=== PATIENT | female | born 1935 | race Caucasian/White ===

== ENCOUNTER 2021-09-15 13:04 | Inpatient (IN) | payer MEDICARE, MEDICAID ==
[~2021-09-15] VITALS: Ht 160 cm; Wt 72.6 kg
[2021-09-15 13:28] LABS: HEMATOCRIT 35.3 % (31.2-41.9); MEAN CORPUSCULAR HEMOGLOBIN 31.5 uug (24.7-32.8); MEAN CORPUSCULAR VOLUME 92.8 fL (75.5-95.3); PLATELET COUNT (AUTO) 251 K/uL (179-408)
[2021-09-15 13:37] LABS: CARBON DIOXIDE 21 mmol/L (21-32); CHLORIDE 97 mmol/L (98-107); CREATININE 7.2 mg/dL (0.6-1.3); GLUCOSE 134 mg/dL (74-106); POTASSIUM 4.5 mmol/L (3.5-5.1)
[2021-09-15 13:56] LABS: UREA NITROGEN, BLOOD 120 mg/dL (7-18)
--- NOTE | 2021-09-15 19:30 | NUR ---
Assumed care of patient from day shift MURALI Gallo. Patient awaiting dialysis.
--- NOTE | 2021-09-15 22:45 | NUR ---
CALLED [facility] FOR PANEL CALL, DR. MORELOS PAGED AND ON PHONE WITH DR. BABCOCK.
--- NOTE | 2021-09-15 23:04 | NUR ---
Patient asleep at this time. Appears comfortable. Still awaiting dialysis.
--- NOTE | 2021-09-16 01:18 | NUR ---
Dr Guadalupe made aware of pt BP-175/109, recheck and was 172/65 with no new order given.
--- NOTE | 2021-09-16 01:30 | NUR ---
Telephone call from foreman/pile driving and erection Marcelo and stated that pt. need to be inpatient to have dialysis done. Informed Manager Software Elizabeth and spoke to MURALI Robertson.
--- NOTE | 2021-09-16 01:42 | NUR ---
Spoke to supervisor shipping room Elizabeth to follow up regarding dialysis. Per Elizabeth pt has to be inpatient to have dialysis done. Informed Dr. Guadalupe and will admit patient. Epic panel call placed, spoke to Sarina, she stated she will get a hold of Dr. Jorgensen for admitting.
--- NOTE | 2021-09-16 03:50 | NUR ---
Pt. admitted to [facility] surgical unit Room 318, under care of Dr. Jorgensen. Belongs List completed.
[2021-09-16 03:58] VITALS: BP 188/64
--- NOTE | 2021-09-16 04:00 | NUR ---
Admitted patient in Med Surg floor under the care of Dr Jorgensen, Patient alert 2/3 unclear if she speak Kazakh cause does not response to verbal stimuli, Patient has dialysis shunt on left upper arm, no bleeding noted, dialysis staff will do dialysis tra, patient BP elevated, MD aware. Patient positive for Covid 19, on droplet caution, on isolation, no s/s of sob no chest pain, no s/s of pain, sat wnl in 96% room air. Patient has right and left groin redness, patient has wet diaper, cont to monitor.
--- NOTE | 2021-09-16 06:42 | NUR ---
Patient had dialysis today, took out 480cc per dialysis staff, tolerate well.
[2021-09-16] MEDS ORDERED: ALPR0.255 PO (10:13)
[2021-09-16] MEDS ORDERED: ASPI81TA31 PO (10:13)
[2021-09-16] MEDS ORDERED: CYAN-10 IM (10:13)
[2021-09-16] MEDS ORDERED: DONE5TAB7 PO (10:13)
[2021-09-16] MEDS ORDERED: CLON-418 PO (10:13)
[2021-09-16] MEDS ORDERED: ATOR20TA PO (10:13)
[2021-09-16] MEDS ORDERED: ACET-2154 PO (10:13)
[2021-09-16] MEDS ORDERED: DOCU-141 PO (10:18)
[2021-09-16] MEDS ORDERED: FOLI1TAB94 PO (10:18)
[2021-09-16] MEDS ORDERED: BISA10SU61 RC (10:18)
[2021-09-16] MEDS ORDERED: ERGO500040 PO (10:18)
[2021-09-16] MEDS ORDERED: INSU100V (10:18)
[2021-09-16] MEDS ORDERED: HYDR100T27 PO (10:18)
[2021-09-16] MEDS ORDERED: VIT1CAPS44 PO (10:27)
[2021-09-16] MEDS ORDERED: NUT.237L67 PO (10:27)
[2021-09-16] MEDS ORDERED: NIFE-35 PO (10:27)
[2021-09-16] MEDS ORDERED: SEVE800T8 PO (10:27)
[2021-09-16] MEDS ORDERED: ICOS1CAP PO (10:27)
[2021-09-16] MEDS ORDERED: FOLI1CAP7 PO (10:27)
[2021-09-16] MEDS ORDERED: SENN-302 PO (10:27)
[2021-09-16] MEDS ORDERED: ESCI20TA PO (10:27)
[2021-09-16] MEDS ORDERED: BISACODYL 10 MG SUPP.RECT RC PRN (10:30)
[2021-09-16] MEDS ORDERED: ALPRAZOLAM 0.25 MG TABLET PO PRN (10:30)
[2021-09-16] MEDS ORDERED: Medication Not On Formulary EA (Clonidine HCl (Clonidine HCl ER) 0.1 MG) PO SCH (10:30)
[2021-09-16] MEDS ORDERED: ACETAMINOPHEN 325 MG TABLET-SA PATIENTS-PAIN ONLY PO PRN (10:30)
[2021-09-16] MEDS ORDERED: ACETAMINOPHEN 325 MG TABLET PO PRN (10:45)
[2021-09-16] MEDS ORDERED: CLONIDINE HCL 0.1 MG TABLET PO PRN (10:45)
[2021-09-16] MEDS: SEVELAMER CARBONATE 800 MG TABLET PO SCH ×2 (11:55→17:26)
[2021-09-16 12:00] VITALS: BP 148/56
[2021-09-16 12:13] VITALS: BP 148/56
[2021-09-16] MEDS ORDERED: ERGOCALCIFEROL 50,000 UNIT CAPSULE PO SCH (15:00)
[2021-09-16] MEDS ORDERED: CYANOCOBALAMIN 1000 MCG/ML VIAL IM SCH (15:00)
[2021-09-16 15:34] VITALS: BP_SYST 121; BP_SYST 139; BP_DIAS 61; BP_DIAS 62
[2021-09-16] MEDS ORDERED: DEXTROSE 50% 50 ML DISP.SYRIN IV PRN (16:15)
[2021-09-16] MEDS: DOCUSATE SODIUM 100 MG CAPSULE PO SCH (17:25)
[2021-09-16] MEDS: BLOOD SUGAR DIAGNOSTIC 1 EACH STRIP VI SCH ×2 (17:25→20:52)
[2021-09-16] MEDS: hydrALAZINE HCL 50 MG TABLET PO SCH (17:26)
[2021-09-16] MEDS: NEPRO (VANILLA) 237 ML CAN PO SCH (17:26)
[2021-09-16] MEDS: INSULIN REGULAR, HUMAN 300 UNIT/3 ML VIAL SQ PRN (17:33)
--- NOTE | 2021-09-16 18:00 | NUR ---
Patient is alert to self, speaks little [place], able to answer simple questions. Is COVID positive, no SOB or coughing noted. S/P dialysis this new order clerk, no adverse reactions noted. AV shunt to left upper arm. Peripheral IV to right FA, patent and intact. Patient needs assistance with feeding, poor appetite noted. All needs attended, call light within reach.
[2021-09-16 20:00] VITALS: BP 146/61
[2021-09-16] MEDS: SENNOSIDES/DOCUSATE SODIUM TABLET PO SCH (20:41)
[2021-09-16] MEDS: ATORVASTATIN 20 MG TABLET PO SCH (20:41)
[2021-09-16] MEDS: ESCITALOPRAM OXALATE 10 MG TABLET PO SCH (20:41)
[2021-09-16] MEDS: NIFEdipine XL 30 MG TABSR PO SCH (20:41)
[2021-09-16] MEDS: DONEPEZIL 5 MG TABLET PO SCH (20:42)
[2021-09-16] MEDS: INSULIN REGULAR, HUMAN 300 UNITS/3 ML VIAL SQ PRN (20:58)
[2021-09-16] MEDS ORDERED: Medication Not On Formulary EA (Escitalopram Oxalate (Lexapro) 20 MG) PO SCH (21:00)
--- NOTE | 2021-09-17 04:12 | NUR ---
Awake alert and oriented x1-2 Calm and cooperative. VSS. Needs attended. COVID(+) All due meds given without difficulty. Incontinent of both bowel and bladder. Kept clean and dry. Patient on dialysis [id number] Left arm AV shunt intact. Oligur ic. Incontinent of bowel and bladder. BM noted this shift. Fall precautions maintained.Siderails up for safety. .
[2021-09-17 04:45] VITALS: BP 131/60
[2021-09-17] MEDS: BLOOD SUGAR DIAGNOSTIC 1 EACH STRIP VI SCH ×4 (06:31→20:50)
[2021-09-17 07:03] LABS: MEAN CORPUSCULAR HEMOGLOBIN 32.1 uug (24.7-32.8); MEAN CORPUSCULAR VOLUME 92.6 fL (75.5-95.3); PLATELET COUNT (AUTO) 242 K/uL (179-408)
[2021-09-17 07:23] LABS: CARBON DIOXIDE 28 mmol/L (21-32); CHLORIDE 97 mmol/L (98-107); CREATININE 6.4 mg/dL (0.6-1.3); GLUCOSE 121 mg/dL (74-106)
[2021-09-17 07:39] LABS: UREA NITROGEN, BLOOD 94 mg/dL (7-18)
[2021-09-17] MEDS: FOLIC ACID/VITAMIN B COMP W-C TABLET PO SCH (08:23)
[2021-09-17] MEDS: ASPIRIN 81 MG TAB.CHEW PO SCH (08:23)
[2021-09-17] MEDS: DOCUSATE SODIUM 100 MG CAPSULE PO SCH ×2 (08:23→16:29)
[2021-09-17] MEDS: OMEGA-3 FATTY ACIDS/FISH OIL CAPSULE PO SCH (08:23)
[2021-09-17] MEDS: SEVELAMER CARBONATE 800 MG TABLET PO SCH ×2 (08:23→11:39)
[2021-09-17] MEDS: FOLIC ACID 1 MG TABLET PO SCH (08:23)
[2021-09-17] MEDS: NEPRO (VANILLA) 237 ML CAN PO SCH ×2 (08:26→16:29)
[2021-09-17] MEDS: BETA CAROTENE/VIT C & E/MIN TABLET PO SCH (08:28)
[2021-09-17] MEDS: hydrALAZINE HCL 50 MG TABLET PO SCH ×2 (08:28→16:29)
[2021-09-17] MEDS ORDERED: Medication Not On Formulary EA (Vit C/E/Zn/Coppr/Lutein/Zeaxan (Preservision Areds 2 Sof PO SCH (09:00)
[2021-09-17] MEDS ORDERED: FOLIC ACID PO SCH (09:00)
[2021-09-17] MEDS ORDERED: Medication Not On Formulary EA (Icosapent Ethyl (Vascepa) 1 GM) PO SCH (09:00)
[2021-09-17] MEDS ORDERED: VITAMIN B COMP W C PO SCH (09:00)
[2021-09-17] MEDS ORDERED: [UNRECOGNIZED DRUG - OTHER] PO SCH (09:00)
[2021-09-17 10:06] LABS: HEPATITIS B SURFACE AG Negative (Negative)
[2021-09-17] MEDS: INSULIN REGULAR, HUMAN 300 UNIT/3 ML VIAL SQ PRN (11:42)
[2021-09-17 12:00] VITALS: BP 143/57
--- NOTE | 2021-09-17 15:13 | NUR ---
Patient positive for MRSA both nares. Will endorse information to PLAYGROUND WORKER.
[2021-09-17 16:00] VITALS: BP 118/58
[2021-09-17] MEDS: MUPIROCIN 2% OINT 22 GM TUBE NS SCH (16:29)
[2021-09-17] MEDS: SEVELAMER CARBONATE 800 MG POWD.PACK PO SCH (18:02)
--- NOTE | 2021-09-17 18:23 | NUR ---
Patient received care well throughout shift with no signs of distress or discomfort. Patient tolerating feedings, but when medication is crushed. Will endorse to PM nurse for the need of swallow evaluation. IV site patent and intact. Patient originally scheduled to have dialysis performed today but will have dialysis performed tomorrow. Bed left in lowest position with call light within reach. Comfort measures provided. Will endorse information to PM nurse.
[2021-09-17 20:00] VITALS: BP 147/59
[2021-09-17] MEDS: ESCITALOPRAM OXALATE 10 MG TABLET PO SCH (20:26)
[2021-09-17] MEDS: SENNOSIDES/DOCUSATE SODIUM TABLET PO SCH (20:26)
[2021-09-17] MEDS: ATORVASTATIN 20 MG TABLET PO SCH (20:26)
[2021-09-17] MEDS: DONEPEZIL 5 MG TABLET PO SCH (20:26)
[2021-09-17] MEDS: NIFEdipine XL 30 MG TABSR PO SCH (20:30)
[2021-09-17] MEDS: INSULIN REGULAR, HUMAN 300 UNITS/3 ML VIAL SQ PRN (20:52)
[2021-09-18 04:00] VITALS: BP 129/60
[2021-09-18] MEDS: BLOOD SUGAR DIAGNOSTIC 1 EACH STRIP VI SCH ×2 (06:30→11:30)
[2021-09-18 07:56] LABS: CARBON DIOXIDE 28 mmol/L (21-32); CHLORIDE 95 mmol/L (98-107); CREATININE 6.8 mg/dL (0.6-1.3); GLUCOSE 105 mg/dL (74-106); MAGNESIUM 2.8 mg/dL (1.8-2.4); PHOSPHOROUS 6.3 mg/dL (2.5-4.9); POTASSIUM 3.9 mmol/L (3.5-5.1)
[2021-09-18 08:04] LABS: UREA NITROGEN, BLOOD 102 mg/dL (7-18)
[2021-09-18 10:18] VITALS: BP 146/85
[2021-09-18] MEDS ORDERED: SEVE0.8P PO (10:30)
[2021-09-18] MEDS ORDERED: MUPI22OI2 NS (10:30)
[2021-09-18 10:59] VITALS: BP 146/85
[2021-09-18] MEDS: hydrALAZINE HCL 50 MG TABLET PO SCH (10:59)
[2021-09-18] MEDS: FOLIC ACID/VITAMIN B COMP W-C TABLET PO SCH (10:59)
[2021-09-18] MEDS: DOCUSATE SODIUM 100 MG CAPSULE PO SCH (11:00)
[2021-09-18] MEDS: OMEGA-3 FATTY ACIDS/FISH OIL CAPSULE PO SCH (11:00)
[2021-09-18] MEDS: BETA CAROTENE/VIT C & E/MIN TABLET PO SCH (11:00)
[2021-09-18] MEDS: ASPIRIN 81 MG TAB.CHEW PO SCH (11:00)
[2021-09-18] MEDS: FOLIC ACID 1 MG TABLET PO SCH (11:00)
[2021-09-18] MEDS: NEPRO (VANILLA) 237 ML CAN PO SCH (11:01)
[2021-09-18] MEDS: SEVELAMER CARBONATE 800 MG POWD.PACK PO SCH ×2 (11:03→12:29)
[2021-09-18] MEDS: MUPIROCIN 2% OINT 22 GM TUBE NS SCH (11:04)
--- NOTE | 2021-09-18 13:32 | NUR ---
[facility]
== END 2021-09-18 14:30 | DRG 177 ==
LOC: ER 13:04 → MEDSURG3 23:55
PROVIDERS: ADMIT Nurse Practitioner Acute Care; ATTEND Nurse Practitioner Acute Care
PROC: 5A1D70Z Performance of Urinary Filtration, Intermittent, Less than 6 Hours Per Day (ICD-10-PCS; principal; 2021-09-16)
DX: U07.1 COVID-19 (principal); G92.8 Other toxic encephalopathy; N18.6 End stage renal disease; J18.9 Pneumonia, unspecified organism; I12.0 Hypertensive chronic kidney disease with stage 5 chronic kidney disease or end stage renal disease; E11.22 Type 2 diabetes mellitus with diabetic chronic kidney disease; Z99.2 Dependence on renal dialysis; E78.5 Hyperlipidemia, unspecified; F03.90 Unspecified dementia, unspecified severity, without behavioral disturbance, psychotic disturbance, mood disturbance, and anxiety; F41.9 Anxiety disorder, unspecified; Z79.4 Long term (current) use of insulin
CPT/HCPCS: 36415; 71045; 83735; 84100; 85025; 86706; 87340; 90937; A4663; G0378; J1815; J3420; J7040

== ENCOUNTER 2022-01-28 13:52 | Inpatient (IN) | payer MEDICARE, OTHER ==
[~2022-01-28] VITALS: Ht 160 cm; Wt 49.4 kg
[~2022-01-28 13:52] MED LIST: ACET-2154 PO; ALPR0.255 PO; ASPI81TA31 PO; ATOR20TA PO; BISA10SU61 RC; CLON-418 PO; CYAN-10 IM; DOCU-141 PO; DONE5TAB7 PO; ERGO500040 PO; ESCI20TA PO; FOLI1CAP7 PO; FOLI1TAB94 PO; HYDR100T27 PO; ICOS1CAP PO; INSU100V SUBCUT; MUPI22OI2 NS; NIFE-35 PO; NUT.237L67 PO; SENN-302 PO; SEVE0.8P PO; SEVE800T8 PO; VIT1CAPS44 PO
[2022-01-28] MEDS ORDERED: VANCOMYCIN IV 1,000 MG in IV DEXTROSE 5% 250 ML IV ONE (14:00)
[2022-01-28] MEDS ORDERED: PIPERACILLIN SODIUM/TAZOBACTAM 3.375 G in IV DEXTROSE 5% 50 ML IV ONE (14:00)
[2022-01-28 14:19] LABS: ABG BASE EXCESS 1.3 mmol/L; ABG HCO3 24.5 mmol/L; ABG PCO2 34.3 mmHg (35.0-45.0); ABG PH 7.471 (7.350-7.450); ABG PO2 50.8 mmHg (75.0-100.0); ABG SITE RIGHT RADIAL; ABG TOTAL HEMOGLOBIN 13.3 G/dL (12.0-16.0); COHb 0.7 % (0.5-1.5); O2Hb 86.6 % (94.0-97.0)
[2022-01-28] MEDS ORDERED: PIPERACILLIN/TAZOBACTAM/D5W 50 ML IV ONE (14:24)
[2022-01-28] MEDS ORDERED: VANCOMYCIN IV 200 ML ONE (14:24)
[2022-01-28 14:50] LABS: HEMATOCRIT 39.4 % (31.2-41.9); MEAN CORPUSCULAR HEMOGLOBIN 29.3 uug (24.7-32.8); MEAN CORPUSCULAR VOLUME 93.3 fL (75.5-95.3); PLATELET COUNT (AUTO) 357 K/uL (179-408)
[2022-01-28 15:32] LABS: ALANINE AMINOTRANSFERASE 48 U/L (14-59); ALKALINE PHOSPHATASE 178 U/L (50-136); ASPARTATE AMINOTRANSFERASE 80 U/L (15-37); BILIRUBIN,DIRECT 0.2 mg/dL (0.0-0.2); BILIRUBIN,TOTAL 0.5 mg/dL (0.2-1.0); CARBON DIOXIDE 29 mmol/L (21-32); CHLORIDE 96 mmol/L (98-107); CREATININE 1.5 mg/dL (0.6-1.3); TOTAL PROTEIN, SERUM 6.9 g/dL (6.4-8.2); UREA NITROGEN, BLOOD 38 mg/dL (7-18)
[2022-01-28 15:45] LABS: GLUCOSE 389 mg/dL (74-106)
[2022-01-28] MEDS ORDERED: IV NORMAL SALINE 1000 ML BAG IV ONE ×2 (16:15→17:45)
[2022-01-28 16:33] LABS: ABG BASE EXCESS 5.9 mmol/L; ABG HCO3 29.2 mmol/L; ABG PCO2 37.5 mmHg (35.0-45.0); ABG PH 7.509 (7.350-7.450); ABG PO2 280.3 mmHg (75.0-100.0); ABG SITE RIGHT RADIAL; ABG TOTAL HEMOGLOBIN 12.8 G/dL (12.0-16.0); COHb 0.4 % (0.5-1.5); MetHb 0.3 % (0.0-1.5); O2Hb 99.1 % (94.0-97.0); VENT MODE HF -
--- NOTE | 2022-01-28 19:05 | NUR ---
Received report from Lisa CARRION.
--- NOTE | 2022-01-28 19:10 | NUR ---
Daughter at bedside.
[2022-01-28] MEDS ORDERED: DEXTROSE 50% 50 ML DISP.SYRIN IV PRN (20:15)
[2022-01-28] MEDS ORDERED: ALPRAZOLAM 0.25 MG TABLET PO PRN (20:15)
[2022-01-28] MEDS ORDERED: ALBUTEROL SULFATE 2.5 MG/3 ML NEBU NEB PRN (20:15)
[2022-01-28] MEDS ORDERED: MORPHINE SULFATE 2 MG/1 ML DISP.SYRIN IV PRN (20:15)
[2022-01-28] MEDS ORDERED: ONDANSETRON 4 MG/2 ML VIAL IV PRN (20:15)
[2022-01-28] MEDS ORDERED: POTASSIUM CHLORIDE 20 MEQ in IV 1/2NS 1000 ML 1,000 ML IV PRN (20:15)
[2022-01-28] MEDS ORDERED: ACETAMINOPHEN 325 MG TABLET PO PRN (20:15)
--- NOTE | 2022-01-28 20:28 | NUR ---
Called 3rd fl for tele bed. Waiting for call back.
[2022-01-28] MEDS: DONEPEZIL 5 MG TABLET PO SCH (21:00)
[2022-01-28] MEDS ORDERED: Medication Not On Formulary EA (Escitalopram Oxalate (Lexapro) 20 MG) PO SCH (21:00)
[2022-01-28] MEDS ORDERED: ATORVASTATIN 20 MG TABLET PO SCH (21:00)
--- NOTE | 2022-01-28 21:00 | NUR ---
It is unsafe for the patient to taken PO meds (Aricept 5 mg and Lipitor 20 mg). Patient may aspirate.
--- NOTE | 2022-01-28 22:55 | NUR ---
Savanah (daughter) left for the night and would like to be notified when patient is moved to TELE unit. Phone #: [phone]
--- NOTE | 2022-01-29 00:30 | NUR ---
Janelle cleaning perform. Diaper fully saturated with brown diarrhea. Bright red blood seen coming out of anus once cleaned was finished. Dr. Stevenson made aware.
[2022-01-29] MEDS: BLOOD SUGAR DIAGNOSTIC 1 EACH STRIP VI SCH ×5 (00:57→21:43)
[2022-01-29] MEDS ORDERED: INSULIN LISPRO 300 UNIT/3 ML VIAL SQ ONE (01:01)
[2022-01-29] MEDS ORDERED: INSULIN REGULAR, HUMAN 300 UNIT/3 ML VIAL ONE (01:04)
[2022-01-29] MEDS: INSULIN REGULAR, HUMAN 300 UNIT/3 ML VIAL SQ PRN ×3 (01:07→21:44)
[2022-01-29] MEDS ORDERED: PIPERACILLIN/TAZO 2.25 G in IV DEXTROSE 5% 50 ML IV SCH ×2 (02:00→08:00)
[2022-01-29] MEDS ORDERED: PIPERACILLIN/TAZOBACTAM/D5W 50 ML ONE (02:28)
--- NOTE | 2022-01-29 05:36 | NUR ---
MRSA swab taken to lab.
[2022-01-29] MEDS: PANTOPRAZOLE SODIUM 40 MG TABLET.DR PO SCH (07:00)
--- NOTE | 2022-01-29 07:10 | NUR ---
Report given to MURALI Gallo.
[2022-01-29 07:28] LABS: HEMATOCRIT 33.4 % (31.2-41.9); MEAN CORPUSCULAR HEMOGLOBIN 30.1 uug (24.7-32.8); MEAN CORPUSCULAR VOLUME 91.4 fL (75.5-95.3); PLATELET COUNT (AUTO) 262 K/uL (179-408)
[2022-01-29 07:55] LABS: ALANINE AMINOTRANSFERASE 27 U/L (14-59); ALKALINE PHOSPHATASE 141 U/L (50-136); ASPARTATE AMINOTRANSFERASE 28 U/L (15-37); BILIRUBIN,TOTAL 0.5 mg/dL (0.2-1.0); CARBON DIOXIDE 28 mmol/L (21-32); CHLORIDE 100 mmol/L (98-107); CHOLESTEROL 114 mg/dL (<200); GLUCOSE 149 mg/dL (74-106); HDL CHOLESTEROL 41 mg/dL (40-60); MAGNESIUM 1.9 mg/dL (1.8-2.4); PHOSPHOROUS 1.4 mg/dL (2.5-4.9); POTASSIUM 3.7 mmol/L (3.5-5.1); TOTAL PROTEIN, SERUM 5.7 g/dL (6.4-8.2); TRIGLYCERIDES 68 MG/DL (30-150); UREA NITROGEN, BLOOD 48 mg/dL (7-18)
[2022-01-29] MEDS ORDERED: IV NS 1000 ML 1,000 ML IV PRN (08:15)
[2022-01-29 09:00] LABS: THYROID STIMULATING HORMONE 0.627 mIU/mL (0.358-3.740)
[2022-01-29] MEDS: DOCUSATE SODIUM 100 MG CAPSULE PO SCH ×2 (09:00→21:46)
[2022-01-29] MEDS: ASPIRIN 81 MG TAB.CHEW PO SCH (09:00)
[2022-01-29] MEDS: ESCITALOPRAM OXALATE 10 MG TABLET PO SCH (09:00)
[2022-01-29] MEDS: PIPERACILLIN SODIUM/TAZOBACTAM 3.375 G in IV DEXTROSE 5% 100 ML IV SCH ×2 (09:56→21:48)
[2022-01-29] MEDS ORDERED: POTASSIUM PHOSPHATE MM 7.5 MMOL in IV NORMAL SALINE 97.5 ML IV ONE (10:00)
--- NOTE | 2022-01-29 10:49 | NUR ---
Per pharmacy, Potassium Phosphate and Zosyn ARE Y-site compatable.
[2022-01-29] MEDS ORDERED: CLON0.1T PO (13:34)
--- NOTE | 2022-01-29 14:00 | NUR ---
Changed and cleaned pt., repositioned.
--- NOTE | 2022-01-29 20:30 | NUR ---
Report given to Monica SHERMAN
--- NOTE | 2022-01-29 21:00 | NUR ---
PATIENT ASLEEP IN BED. ON TELE SR. VSS.
[2022-01-29 21:15] VITALS: BP 125/64
[2022-01-29] MEDS: DONEPEZIL 5 MG TABLET PO SCH (21:46)
--- NOTE | 2022-01-30 00:55 | NUR ---
IV SITE NOTED TO RIGHT FA LEAKING. UNABLE TO RESTART. NOTIFIED VESSEL WELDER. WILL ORDER MID-LINE PER MD. RN INSPECTION SUPERVISOR NOTIFIED.
--- NOTE | 2022-01-30 03:41 | NUR ---
PATIENT ON CONT HIGH FLOW @ 40%, TITRATE FIO2 TO 30%, SAT 98%, ABG IN AM BEFORE 0600, PT STABLE .Kahlil DHILLONP Addendum: 01/30/22 at 0342 by MARCUS REYNA RT Amended: Links added.
[2022-01-30 05:00] VITALS: BP 153/67
[2022-01-30 06:09] LABS: ABG BASE EXCESS -0.8 mmol/L; ABG HCO3 22.4 mmol/L; ABG PCO2 31.9 mmHg (35.0-45.0); ABG PH 7.464 (7.350-7.450); ABG PO2 111.4 mmHg (75.0-100.0); ABG SITE RIGHT RADIAL; ABG TOTAL HEMOGLOBIN 11.1 G/dL (12.0-16.0); COHb 0.1 % (0.5-1.5); MetHb 0.2 % (0.0-1.5); O2Hb 98.1 % (94.0-97.0); VENT MODE HF - Aquinox
[2022-01-30] MEDS: PANTOPRAZOLE SODIUM 40 MG TABLET.DR PO SCH (06:10)
[2022-01-30] MEDS: BLOOD SUGAR DIAGNOSTIC 1 EACH STRIP VI SCH ×4 (06:23→21:54)
[2022-01-30 06:36] LABS: HEMATOCRIT 33.7 % (31.2-41.9); MEAN CORPUSCULAR HEMOGLOBIN 29.5 uug (24.7-32.8); MEAN CORPUSCULAR VOLUME 92.1 fL (75.5-95.3); PLATELET COUNT (AUTO) 225 K/uL (179-408)
[2022-01-30 07:03] LABS: CARBON DIOXIDE 27 mmol/L (21-32); CHLORIDE 100 mmol/L (98-107); CREATININE 2.5 mg/dL (0.6-1.3); GLUCOSE 168 mg/dL (74-106); POTASSIUM 4.3 mmol/L (3.5-5.1); UREA NITROGEN, BLOOD 57 mg/dL (7-18)
[2022-01-30] MEDS: ESCITALOPRAM OXALATE 10 MG TABLET PO SCH ×3 (09:00→11:03)
[2022-01-30] MEDS: ASPIRIN 81 MG TAB.CHEW PO SCH ×3 (09:00→11:01)
[2022-01-30] MEDS: DOCUSATE SODIUM 100 MG CAPSULE PO SCH ×4 (09:00→16:48)
--- NOTE | 2022-01-30 09:13 | NUR ---
RECEIVED PT IN BED, SLEEPING. ATTEMPTED TO GIVE HER BREAKFAST AND MORNING MEDICATIONS BUT PATIENT IS NON-AROUSABLE, MOANING OCCASIONALLY BUT DOESN'T OPEN HER EYES. DOCTOR IS INFORMED. NPO FOR NOW PER MD.
[2022-01-30] MEDS: PIPERACILLIN SODIUM/TAZOBACTAM 3.375 G in IV DEXTROSE 5% 100 ML IV SCH ×2 (10:45→22:02)
[2022-01-30] MEDS: INSULIN REGULAR, HUMAN 300 UNIT/3 ML VIAL SQ PRN (11:50)
[2022-01-30 11:55] VITALS: BP 127/34
[2022-01-30 15:36] VITALS: BP 138/37
--- NOTE | 2022-01-30 16:48 | NUR ---
Patient unable to swallow pills due to her being sleepy and she is unable to follow commands when offered food or medications. Patient is currently NPO
[2022-01-30 20:00] VITALS: BP 117/58
[2022-01-30] MEDS: DONEPEZIL 5 MG TABLET PO SCH (21:00)
[2022-01-30] MEDS ORDERED: VANCOMYCIN IV 1,000 MG in IV DEXTROSE 5% 250 ML IV ONE (22:00)
[2022-01-30] MEDS: IV D5 1/2 NS 1000 ML 1,000 ML IV PRN (22:14)
[2022-01-30] MEDS ORDERED: VANCOMYCIN IV 200 ML ONE (23:01)
--- NOTE | 2022-01-30 23:24 | NUR ---
Yepez #16fr inserted safely via sterile procedure Drainage pus like 400 mls Specimen sent for UA/C&S.
[2022-01-30 23:50] LABS: *BILIRUBIN,URIN NEGATIVE (NEGATIVE); *BLOOD, URINE 3+ (NEGATIVE); *CLARITY,URINE TURBID (CLEAR); *COLOR,URINE YELLOW (YELLOW); *KETONES,URINE NEGATIVE (NEGATIVE); *UROBILINOGEN,URINE 0.2 E.U./dl (NORMAL); LEUKOCYTE ESTERASE ,URINE 3+ (NEGATIVE); NITRITE, URINE NEGATIVE (NEGATIVE); UGLUCOSE NEGATIVE (NEGATIVE)
[2022-01-31] VITALS: BP 139/59
[2022-01-31 04:00] VITALS: BP 141/51
[2022-01-31 06:10] LABS: BACTERIA,URINE MANY /HPF (NONE SEEN); SQUAMOUS EPITHELIAL CELL,UR FEW /HPF (NONE SEEN); URINE AMORPHOUS URATE MANY /HPF
[2022-01-31] MEDS ORDERED: VANCOMYCIN IV 500 MG in IV DEXTROSE 5% 100 ML IV PRN (06:45)
--- NOTE | 2022-01-31 07:22 | NUR ---
Stable repositioned Q2 AM care done . Pending Urine C&S result NPO
[2022-01-31] MEDS: BLOOD SUGAR DIAGNOSTIC 1 EACH STRIP VI SCH ×4 (07:40→21:00)
[2022-01-31 07:43] LABS: HEMATOCRIT 28.2 % (31.2-41.9); MEAN CORPUSCULAR HEMOGLOBIN 29.8 uug (24.7-32.8); MEAN CORPUSCULAR VOLUME 92.1 fL (75.5-95.3); PLATELET COUNT (AUTO) 208 K/uL (179-408)
[2022-01-31] MEDS: INSULIN REGULAR, HUMAN 300 UNIT/3 ML VIAL SQ PRN ×2 (07:49→22:42)
[2022-01-31 08:04] LABS: ALANINE AMINOTRANSFERASE 23 U/L (14-59); ALKALINE PHOSPHATASE 137 U/L (50-136); ASPARTATE AMINOTRANSFERASE 19 U/L (15-37); BILIRUBIN,TOTAL 0.5 mg/dL (0.2-1.0); CARBON DIOXIDE 25 mmol/L (21-32); CHLORIDE 101 mmol/L (98-107); CREATININE 3.1 mg/dL (0.6-1.3); GLUCOSE 187 mg/dL (74-106); MAGNESIUM 1.9 mg/dL (1.8-2.4); POTASSIUM 3.4 mmol/L (3.5-5.1); TOTAL PROTEIN, SERUM 4.9 g/dL (6.4-8.2); UREA NITROGEN, BLOOD 59 mg/dL (7-18)
[2022-01-31] MEDS: PIPERACILLIN/TAZO 2.25 G in IV DEXTROSE 5% 50 ML IV SCH ×3 (08:34→23:50)
[2022-01-31] MEDS: ESCITALOPRAM OXALATE 10 MG TABLET PO SCH (09:00)
[2022-01-31] MEDS: ASPIRIN 81 MG TAB.CHEW PO SCH (09:00)
[2022-01-31] MEDS: DOCUSATE SODIUM 100 MG CAPSULE PO SCH ×2 (09:00→16:51)
--- NOTE | 2022-01-31 09:00 | NUR ---
Received pt sleeping in bed, morning meds were not given since patient is NPO and unable to swallow food and meds.
[2022-01-31] MEDS: MUPIROCIN 2% OINT 22 GM TUBE NS SCH ×2 (09:57→20:56)
[2022-01-31 12:00] VITALS: BP 113/68
[2022-01-31] MEDS ORDERED: POTASSIUM CHLORIDE 50 ML IV SCH (14:00)
[2022-01-31 16:00] VITALS: BP 124/62
[2022-01-31 20:00] VITALS: BP 101/52
[2022-01-31] MEDS: DONEPEZIL 5 MG TABLET PO SCH (20:53)
--- NOTE | 2022-01-31 20:57 | NUR ---
Ointment to g-tube site not administer, no g-tube site.
--- NOTE | 2022-01-31 23:45 | NUR ---
Addendum to previous note: Mopirocin (bactroban ointment) applied to nares as per order.
[2022-02-01] VITALS: BP 132/59
[2022-02-01 04:00] VITALS: BP 112/34
[2022-02-01 06:31] LABS: HEMATOCRIT 28.8 % (31.2-41.9); MEAN CORPUSCULAR HEMOGLOBIN 30.3 uug (24.7-32.8); MEAN CORPUSCULAR VOLUME 90.4 fL (75.5-95.3); PLATELET COUNT (AUTO) 204 K/uL (179-408)
[2022-02-01] MEDS: BLOOD SUGAR DIAGNOSTIC 1 EACH STRIP VI SCH ×4 (06:44→21:40)
[2022-02-01 07:05] LABS: ALANINE AMINOTRANSFERASE 21 U/L (14-59); ALKALINE PHOSPHATASE 125 U/L (50-136); ASPARTATE AMINOTRANSFERASE 23 U/L (15-37); BILIRUBIN,TOTAL 0.4 mg/dL (0.2-1.0); CARBON DIOXIDE 23 mmol/L (21-32); CHLORIDE 101 mmol/L (98-107); CREATININE 3.5 mg/dL (0.6-1.3); GLUCOSE 204 mg/dL (74-106); MAGNESIUM 1.8 mg/dL (1.8-2.4); PHOSPHOROUS 4.3 mg/dL (2.5-4.9); POTASSIUM 3.2 mmol/L (3.5-5.1); TOTAL PROTEIN, SERUM 4.9 g/dL (6.4-8.2); UREA NITROGEN, BLOOD 58 mg/dL (7-18)
[2022-02-01] MEDS: PIPERACILLIN/TAZO 2.25 G in IV DEXTROSE 5% 50 ML IV SCH ×3 (07:41→23:18)
[2022-02-01] MEDS: INSULIN REGULAR, HUMAN 300 UNIT/3 ML VIAL SQ PRN (07:48)
[2022-02-01] MEDS: DOCUSATE SODIUM 100 MG CAPSULE PO SCH ×2 (08:13→16:11)
[2022-02-01] MEDS: ASPIRIN 81 MG TAB.CHEW PO SCH (08:13)
[2022-02-01] MEDS: ESCITALOPRAM OXALATE 10 MG TABLET PO SCH (08:14)
[2022-02-01] MEDS: POTASSIUM CHLORIDE 50 ML IV SCH ×2 (10:00→14:52)
[2022-02-01] MEDS: IV D5 1/2 NS 1000 ML 1,000 ML IV PRN (10:04)
[2022-02-01] MEDS: MUPIROCIN 2% OINT 22 GM TUBE NS SCH ×2 (10:04→21:39)
[2022-02-01 12:14] VITALS: BP 129/42
[2022-02-01 17:14] VITALS: BP 103/84
[2022-02-01 20:00] VITALS: BP 132/58
[2022-02-01] MEDS: DONEPEZIL 5 MG TABLET PO SCH (21:39)
[2022-02-02] VITALS: BP 138/51
[2022-02-02] MEDS: IV D5 1/2 NS 1000 ML 1,000 ML IV PRN (02:08)
[2022-02-02 04:00] VITALS: BP 127/56
[2022-02-02 06:48] LABS: HEMATOCRIT 28.2 % (31.2-41.9); MEAN CORPUSCULAR HEMOGLOBIN 30.7 uug (24.7-32.8); MEAN CORPUSCULAR VOLUME 91.6 fL (75.5-95.3); PLATELET COUNT (AUTO) 196 K/uL (179-408)
[2022-02-02] MEDS: BLOOD SUGAR DIAGNOSTIC 1 EACH STRIP VI SCH ×4 (07:05→21:28)
[2022-02-02 07:06] LABS: HEPATITIS B SURFACE AG Negative (Negative)
[2022-02-02 07:19] LABS: ALANINE AMINOTRANSFERASE 16 U/L (14-59); ALKALINE PHOSPHATASE 115 U/L (50-136); ASPARTATE AMINOTRANSFERASE 23 U/L (15-37); BILIRUBIN,TOTAL 0.4 mg/dL (0.2-1.0); CARBON DIOXIDE 31 mmol/L (21-32); CHLORIDE 100 mmol/L (98-107); CREATININE 1.9 mg/dL (0.6-1.3); GLUCOSE 190 mg/dL (74-106); MAGNESIUM 1.4 mg/dL (1.8-2.4); PHOSPHOROUS 2.6 mg/dL (2.5-4.9); TOTAL PROTEIN, SERUM 4.6 g/dL (6.4-8.2); UREA NITROGEN, BLOOD < 1 mg/dL (7-18)
[2022-02-02] MEDS: INSULIN REGULAR, HUMAN 300 UNIT/3 ML VIAL SQ PRN ×3 (08:00→21:34)
[2022-02-02] MEDS: PIPERACILLIN/TAZO 2.25 G in IV DEXTROSE 5% 50 ML IV SCH ×2 (08:05→15:47)
[2022-02-02] MEDS: MUPIROCIN 2% OINT 22 GM TUBE NS SCH ×2 (08:05→21:28)
[2022-02-02] MEDS: ASPIRIN 81 MG TAB.CHEW PO SCH (08:09)
[2022-02-02] MEDS: DOCUSATE SODIUM 100 MG CAPSULE PO SCH (08:09)
[2022-02-02] MEDS: ESCITALOPRAM OXALATE 10 MG TABLET PO SCH (08:09)
[2022-02-02] MEDS: MAGNESIUM SULFATE/D5W 100 ML IV SCH ×2 (10:01→10:58)
[2022-02-02] MEDS: POTASSIUM CHLORIDE 50 ML IV SCH ×3 (10:17→13:19)
[2022-02-02 11:01] VITALS: BP 126/53
--- NOTE | 2022-02-02 12:24 | NUR ---
WOUND CARE CONSULT: PT PRESENTS WITH MULTIPLE DRY FOOT/LOWER LEG WOUNDS, PRESENT ON ADMISSION. PT HAS SEVERELY CONTRACTED LOWER EXTREMITIES. PT IS CACHECTIC. DPM CONSULT CALLED TO DR HILL. PT ALSO NOTED TO HAVE VERY BONY AREAS AND AREAS OF SKIN DISCOLORATION. RECOMMENDATIONS MADE FOR SKIN PROTECTION. DISCUSSED WITH NURSING STAFF. PT IS ON FIRST STEP CIRRUS LOW AIRLOSS MATTRESS. PT IS NPO DUE TO FAILING SWALLOW EVAL. PER RN. DIETARY CONSULT IN PLACE. PT NOTED TO HAVE VERY FRAGILE SKIN. MD IN AGREEMENT WITH PLAN OF CARE.
[2022-02-02] MEDS ORDERED: hydrALAZINE HCL 20 MG/1 ML VIAL IV PRN (15:45)
[2022-02-02 15:58] VITALS: BP 188/99
[2022-02-02] MEDS: DOCUSATE SODIUM 100 MG/10 ML LIQUID UDC PO SCH (16:38)
[2022-02-02] MEDS ORDERED: NEPRO (VANILLA) 237 ML CAN PO SCH (17:00)
[2022-02-02 17:33] VITALS: BP 152/78
--- NOTE | 2022-02-02 17:59 | NUR ---
patient passed the swallow eval per speech therapist, Chacha, patient started on puree diet, agatha espinosa ENGINEERING FACULTY made aware. aspirations precautions are in place.
--- NOTE | 2022-02-02 19:01 | NUR ---
patient has intact left arm fistula, no signs or symptoms of bleeding noted. dressing intact.
[2022-02-02 20:00] VITALS: BP 90/39
[2022-02-02] MEDS: NIFEdipine XL 30 MG TABSR PO SCH (21:00)
[2022-02-02] MEDS: DONEPEZIL 5 MG TABLET PO SCH (21:28)
[2022-02-03] VITALS: BP 134/111
[2022-02-03] MEDS: PIPERACILLIN/TAZO 2.25 G in IV DEXTROSE 5% 50 ML IV SCH ×3 (00:21→16:09)
[2022-02-03 04:00] VITALS: BP 167/62
[2022-02-03 06:13] LABS: HEMATOCRIT 37.6 % (31.2-41.9); MEAN CORPUSCULAR HEMOGLOBIN 29.8 uug (24.7-32.8); MEAN CORPUSCULAR VOLUME 91.8 fL (75.5-95.3); PLATELET COUNT (AUTO) 229 K/uL (179-408)
[2022-02-03 06:31] LABS: CARBON DIOXIDE 25 mmol/L (21-32); CHLORIDE 98 mmol/L (98-107); CREATININE 2.5 mg/dL (0.6-1.3); GLUCOSE 89 mg/dL (74-106); MAGNESIUM 2.3 mg/dL (1.8-2.4); PHOSPHOROUS 3.2 mg/dL (2.5-4.9); POTASSIUM 3.6 mmol/L (3.5-5.1); UREA NITROGEN, BLOOD 12 mg/dL (7-18)
[2022-02-03] MEDS: BLOOD SUGAR DIAGNOSTIC 1 EACH STRIP VI SCH ×4 (06:33→21:14)
[2022-02-03] MEDS: INSULIN REGULAR, HUMAN 300 UNIT/3 ML VIAL SQ PRN ×3 (06:34→21:36)
--- NOTE | 2022-02-03 07:04 | NUR ---
SHIFT NOTE: PT SLEPT MOST OF NIGHT AWAKENEDTO GIVE MEDICATION AND TAKE HS BLOOD SUGAR WHICH WAS 298 GAVE 6 UNITS OF REGULAR INSULIN NO SIGNS OF DIABETIC REACTION NOTED. PT AM BLOOD SUGAR 75 NO COVERAGE REQUIRED NO SIGNS OF DIABETIC REACTION NOTED.
--- NOTE | 2022-02-03 07:07 | NUR ---
PT B/P IS 167/62GAVE 10MG OF APRESOLINE IV NO SIGNS OF RESPIRATORY DISTRESS NOTEDwILL ENDORSE TO AM NURSE.
[2022-02-03] MEDS: ESCITALOPRAM OXALATE 10 MG TABLET PO SCH (09:00)
[2022-02-03] MEDS: MUPIROCIN 2% OINT 22 GM TUBE NS SCH ×2 (09:00→21:33)
[2022-02-03] MEDS: ASPIRIN 81 MG TAB.CHEW PO SCH (09:00)
[2022-02-03] MEDS: DOCUSATE SODIUM 100 MG/10 ML LIQUID UDC PO SCH ×2 (09:00→17:00)
[2022-02-03 11:30] VITALS: BP 128/87
[2022-02-03] MEDS: NEPRO (VANILLA) 237 ML CAN PO SCH ×2 (13:00→17:00)
[2022-02-03 16:10] VITALS: BP 145/77
[2022-02-03] MEDS: MEGESTROL ACETATE 20 MG TABLET PO SCH ×2 (18:15→21:32)
[2022-02-03 20:47] VITALS: BP 117/42
[2022-02-03] MEDS: NIFEdipine XL 30 MG TABSR PO SCH ×2 (21:00→21:32)
[2022-02-03] MEDS: DONEPEZIL 5 MG TABLET PO SCH ×2 (21:00→21:32)
--- NOTE | 2022-02-03 21:30 | NUR ---
Pt is non verbal and uncooperative. Pt refused oral medication. Doesn't open her mouth.
[2022-02-03] MEDS: IV D5 1/2 NS 1000 ML 1,000 ML IV PRN (22:00)
[2022-02-04 00:12] VITALS: BP 137/45
[2022-02-04 04:28] VITALS: BP 151/54
[2022-02-04 06:19] LABS: HEMATOCRIT 30.7 % (31.2-41.9); MEAN CORPUSCULAR HEMOGLOBIN 30.1 uug (24.7-32.8); MEAN CORPUSCULAR VOLUME 91.1 fL (75.5-95.3); PLATELET COUNT (AUTO) 237 K/uL (179-408)
[2022-02-04 06:19] LABS: ABG BASE EXCESS 2.8 mmol/L; ABG HCO3 26.2 mmol/L; ABG PCO2 35.7 mmHg (35.0-45.0); ABG PH 7.483 (7.350-7.450); ABG PO2 87.7 mmHg (75.0-100.0); ABG SITE RIGHT RADIAL; ABG TOTAL HEMOGLOBIN 10.7 G/dL (12.0-16.0); COHb 0.2 % (0.5-1.5); MetHb 0.3 % (0.0-1.5); O2Hb 96.4 % (94.0-97.0); VENT MODE HF - Aquinox
[2022-02-04] MEDS: BLOOD SUGAR DIAGNOSTIC 1 EACH STRIP VI SCH ×4 (06:49→20:57)
[2022-02-04 07:25] LABS: CARBON DIOXIDE 27 mmol/L (21-32); CHLORIDE 99 mmol/L (98-107); CREATININE 2.7 mg/dL (0.6-1.3); GLUCOSE 212 mg/dL (74-106); MAGNESIUM 2.2 mg/dL (1.8-2.4); PHOSPHOROUS 4.4 mg/dL (2.5-4.9); POTASSIUM 3.3 mmol/L (3.5-5.1); UREA NITROGEN, BLOOD 40 mg/dL (7-18)
--- NOTE | 2022-02-04 07:45 | NUR ---
RECEIVED PATIENT IN BED AWAKE NON VERBAL AT THIS TIME WITH HI FLOW O2 AT 6L/M WITH FIO2 AT 28 PERCENT WITH NO S/S OF SHORTNESS OF BREATH AT THIS TIME.REMAIN ON IVF ORDERED WITH NO S/S OF INFILTERATION AT THIS TIME LEFT UPPER ARM DIALYSIS ACCESS INTACT WITH POSITIVE BRUIT AND THRILL REMAIN ON CONTACT ISOLATION FOR POSITIVE ESBL IN URINE MAX ASSIST FOR ALL ADL REPOSITIONED FOR COMFORT DAIRY TESTER HERE AND STARTED DIALYSIS ORDERED.
[2022-02-04] MEDS: INSULIN REGULAR, HUMAN 300 UNIT/3 ML VIAL SQ PRN ×2 (08:17→21:00)
[2022-02-04] MEDS: MEGESTROL ACETATE 20 MG TABLET PO SCH ×2 (09:00→17:00)
[2022-02-04] MEDS: ASPIRIN 81 MG TAB.CHEW PO SCH (09:00)
[2022-02-04] MEDS: NEPRO (VANILLA) 237 ML CAN PO SCH ×3 (09:00→17:27)
[2022-02-04] MEDS: ESCITALOPRAM OXALATE 10 MG TABLET PO SCH (09:00)
[2022-02-04] MEDS: DOCUSATE SODIUM 100 MG/10 ML LIQUID UDC PO SCH ×2 (09:00→17:00)
--- NOTE | 2022-02-04 09:50 | NUR ---
The patient is still on Dialysis and requested to come back in 2 hours.
--- NOTE | 2022-02-04 11:00 | NUR ---
DIALYSIS COMPLETED ORDERED AND ONE LITER REMOVED AND TOLERATED WELL WILL CONTINUE TO OBSERVE O2 CHANGED TO 3L/M BY NASAL CANULA BY THE RESPIRATORY THERAPIST.
[2022-02-04] MEDS: IV D5 1/2 NS 1000 ML 1,000 ML IV PRN (11:22)
[2022-02-04] MEDS: MUPIROCIN 2% OINT 22 GM TUBE NS SCH ×2 (11:25→20:37)
[2022-02-04 11:55] VITALS: BP 106/50
[2022-02-04] MEDS ORDERED: VANCOMYCIN IV 500 MG in IV DEXTROSE 5% 100 ML IV ONE (15:30)
[2022-02-04 15:55] VITALS: BP 112/35
--- NOTE | 2022-02-04 17:30 | NUR ---
PATIENT CONTINUES TO REFUSE HER MEDICATIONS AND TO EAT THE EGG FACTORY WORKER DELANEY AWARE WITH NO NEW ORDERS AT THIS TIME.
[2022-02-04 20:25] VITALS: BP 161/48
[2022-02-04] MEDS: NIFEdipine XL 30 MG TABSR PO SCH (20:37)
[2022-02-04] MEDS: DONEPEZIL 5 MG TABLET PO SCH (20:37)
[2022-02-05 00:22] VITALS: BP 131/63
[2022-02-05] MEDS: IV D5 1/2 NS 1000 ML 1,000 ML IV PRN (03:10)
[2022-02-05 04:22] VITALS: BP 157/54
[2022-02-05] MEDS: BLOOD SUGAR DIAGNOSTIC 1 EACH STRIP VI SCH ×2 (06:58→12:12)
[2022-02-05] MEDS: ESCITALOPRAM OXALATE 10 MG TABLET PO SCH (09:11)
[2022-02-05] MEDS: ASPIRIN 81 MG TAB.CHEW PO SCH (09:11)
[2022-02-05] MEDS: DOCUSATE SODIUM 100 MG/10 ML LIQUID UDC PO SCH (09:12)
[2022-02-05] MEDS: MEGESTROL ACETATE 20 MG TABLET PO SCH (09:12)
[2022-02-05] MEDS: NEPRO (VANILLA) 237 ML CAN PO SCH ×2 (09:13→13:00)
[2022-02-05] MEDS: MUPIROCIN 2% OINT 22 GM TUBE NS SCH (09:13)
[2022-02-05 11:40] VITALS: BP 150/53
[2022-02-05] MEDS: INSULIN REGULAR, HUMAN 300 UNIT/3 ML VIAL SQ PRN (12:13)
[2022-02-05] MEDS ORDERED: MEGE20TA4 PO (13:28)
--- NOTE | 2022-02-05 14:09 | NUR ---
DISCHARGE ORDER NOTED PATIENT WILL BE DISCHARGED TO [facility] AND PER THE POT BUILDER WAS UNABLE TO REACH PATIETS SON BY=UT STATED IT WAS OKAY TO SEND PATIENT.
--- NOTE | 2022-02-05 15:00 | NUR ---
CALLED [facility] SPOKE WITH ELIE AND REPORT GIVEN FOR CONTINUING CARE.PATIENT WILL BE DISCHARGED WITH [facility] AND MIDLINE PER DELANEY COLON THE MEDICAL PROVIDER.
--- NOTE | 2022-02-05 15:30 | NUR ---
PATIENT DISCHARGED PICKED UP BY [facility] IN SAME CONDITION APPETITE REMAINS POOR REMAIN ON ISOLATION FOR ESBL IN URINE NOT IN DISTRESS AT THIS TIME.
== END 2022-02-05 15:30 | DRG 871 ==
LOC: ER 13:52 → TRANSITION 18:00 → TELE3 01-29 20:30
PROVIDERS: ADMIT Internal Medicine; ATTEND Nurse Practitioner Family
PROC: 05H533Z Insertion of Infusion Device into Right Subclavian Vein, Percutaneous Approach (ICD-10-PCS; 2022-01-30)
PROC: B546ZZA Ultrasonography of Right Subclavian Vein, Guidance (ICD-10-PCS; 2022-01-30)
PROC: 5A1D70Z Performance of Urinary Filtration, Intermittent, Less than 6 Hours Per Day (ICD-10-PCS; principal; 2022-02-01)
DX: A41.9 Sepsis, unspecified organism (principal); E43 Unspecified severe protein-calorie malnutrition; J96.21 Acute and chronic respiratory failure with hypoxia; G92.8 Other toxic encephalopathy; J69.0 Pneumonitis due to inhalation of food and vomit; N18.6 End stage renal disease; D68.59 Other primary thrombophilia; E87.20 Acidosis, unspecified; N39.0 Urinary tract infection, site not specified; Z16.12 Extended spectrum beta lactamase (ESBL) resistance; Z68.1 Body mass index [BMI] 19.9 or less, adult; J44.0 Chronic obstructive pulmonary disease with (acute) lower respiratory infection; I12.0 Hypertensive chronic kidney disease with stage 5 chronic kidney disease or end stage renal disease; R65.20 Severe sepsis without septic shock; Z66 Do not resuscitate; E11.65 Type 2 diabetes mellitus with hyperglycemia; E78.5 Hyperlipidemia, unspecified; E11.22 Type 2 diabetes mellitus with diabetic chronic kidney disease; M24.562 Contracture, left knee; M24.561 Contracture, right knee; R62.7 Adult failure to thrive; Z20.822 Contact with and (suspected) exposure to COVID-19; Z99.2 Dependence on renal dialysis; Z74.09 Other reduced mobility; F03.90 Unspecified dementia, unspecified severity, without behavioral disturbance, psychotic disturbance, mood disturbance, and anxiety; Z22.322 Carrier or suspected carrier of Methicillin resistant Staphylococcus aureus; I45.10 Unspecified right bundle-branch block; E87.6 Hypokalemia; Z79.82 Long term (current) use of aspirin; I35.0 Nonrheumatic aortic (valve) stenosis; B96.20 Unspecified Escherichia coli [E. coli] as the cause of diseases classified elsewhere; N25.0 Renal osteodystrophy; L89.896 Pressure-induced deep tissue damage of other site; Z79.4 Long term (current) use of insulin
CPT/HCPCS: 36415; 36600; 71045; 83605; 83735; 84100; 84443; 84484; 85025; 85730; 86706; 87040; 87077; 87086; 87340; 90937; 93005; 93307; A4663; A6209; A6213; G0378; J0360; J1815; J2543; J3370; J3475; J3480; J3490; J7040; J7042; J7050; U0003